=== PATIENT | female | born 1935 | race Caucasian/White ===

== ENCOUNTER 2022-11-10 08:33 | Emergency (ER) | payer MEDICARE, OTHER, SELFPAY ==
[2022-11-10 08:41] VITALS: BP 134/77; PULSE 84; RESP 16; TEMP 36.9; O2SAT 94; BMI 26.6
--- NOTE | 2022-11-10 08:52 | DI.RAD.S_ITS ---
PROCEDURE: XR CHEST 2V INDICATIONS: cough TECHNIQUE: 2 views of the chest were acquired. COMPARISON: None. FINDINGS: Surgical changes and devices: Cervical fixation hardware is grossly intact. Lungs and pleura: There is diffuse interstitial prominence. No focal airspace opacities. Mediastinum: Mediastinal contours are normal. Heart size is normal. Bones and chest wall: No suspicious bony abnormalities. Soft tissues appear unremarkable. IMPRESSION: Interstitial prominence suggesting fluid overload. Dictated by: Robyn Lafleur M.D. on 11/10/2022 at 9:53 Approved by: Robyn Lafleur M.D. on 11/10/2022 at 9:54
[2022-11-10 09:24] LABS: Strep Grp A by PCR Rapid Negative (Negative)
--- NOTE | 2022-11-10 09:28 | ED_ITS ---
HPI - URI/Sore Throat General Chief Complaint: Upper Respiratory Symptoms Stated Complaint: bad cough Time Seen by Provider: 11/10/22 08:52 Source: patient Mode of arrival: Ambulatory History of Present Illness HPI Narrative: Patient is a 86-year-old female history of coronary artery disease hypertension hyperlipidemia presenting today with hoarse voice. She reports that she is here for a class reunion she is been talking quite a bit and woke up this morning with a hoarse voice. She denies any fatigue fever or chills. Yesterday she had a mild sore throat. She denies any shortness of breath with exertion no chest pain no other symptoms. She is supposed to fly back home tomorrow and wanted an evaluation Review of Systems Review of Systems ROS Unobtainable: All systems reviewed & are unremarkable except as noted in HPI and below Patient History Social History Smoking Status: Never smoker Smoking Status: Never smoker alcohol intake frequency: holidays/special occasions only Substance Use Type: does not use Exam Initial Vital Signs Initial Vital Signs: Vital Signs Temperature 98.5 F 11/10/22 08:41 Pulse Rate 84 11/10/22 08:41 Respiratory Rate 16 11/10/22 08:41 Blood Pressure 134/77 11/10/22 08:41 Pulse Oximetry 94 11/10/22 08:41 Oxygen Delivery Method Room Air 11/10/22 08:41 GENERAL: Alert pleasant well-appearing 86-year-old female and in no acute distress. HEENT: Head atraumatic,EOMI, pupils reactive, face symmetric, moist mucous membranes PHARYNX: No erythema, no tonsillar exudate, no cervical lymphadenopathy CARDIOVASCULAR: Regular rate and rhythm without murmurs, rubs or gallops. RESPIRATORY: Breath sounds equal bilaterally, no wheezes rales or rhonchi. EXTREMITIES: Normal range of motion, no clubbing or edema. Neurovascularly intact NEUROLOGICAL: Alert and oriented x4. SKIN: Warm, dry, no laceration, no petechiae, no rashes or lesions. Course Orders Ordered: ED Orders 11/10/22 08:52 Chest [XR chest 2V] Stat 11/10/22 08:57 Covid-19 + FLU A/B + RSV - PCR Stat Strep Grp A by PCR Rapid Stat Throat Culture Stat Vital Signs Vital signs: Vital Signs - 8 hr 11/10/22 08:41 Temperature 98.5 F Pulse Rate 84 Respiratory Rate 16 Blood Pressure 134/77 Pulse Oximetry 94 Oxygen Delivery Method Room Air MDM - URI/Sore Throat Lab Data Labs: Lab Results 11/10/22 11/10/22 11/10/22 Range/Units 08:57 08:57 08:57 Chlamy pneumoniae PCR Cancelled Adenovirus (PCR) Cancelled B. pertussis DNA (PCR) Cancelled B.parapertussis DNA PCR Cancelled Coronavirus OC43 (PCR) Cancelled Coronavirus HKU1 (PCR) Cancelled Coronavirus 229E (PCR) Cancelled SARS-CoV-2 (PCR) Cancelled Negative Coronavirus NL63 (PCR) Cancelled Human Metapneumovir PCR Cancelled Influenza A (RT-PCR) Flu a negative (NEGATIVE) Influenza Type A (PCR) Cancelled Influenza B (RT-PCR) Flu b negative (NEGATIVE) Influenza Type B (PCR) Cancelled M. pneumoniae (PCR) Cancelled Parainfluenza 1 (PCR) Cancelled Parainfluenza 2 (PCR) Cancelled Parainfluenza 3 (PCR) Cancelled Parainfluenza 4 (PCR) Cancelled RSV (PCR) Cancelled Negative Entero/Rhino (PCR) Cancelled Group A Strep (PCR) Negative (Negative) Imaging Data Chest x-ray: Radiologist's Impression: PROCEDURE:? XR CHEST 2V ? INDICATIONS:? cough ? TECHNIQUE:? 2 views of the chest were acquired.? ? COMPARISON:? None. ? FINDINGS:? ? Surgical changes and devices:? Cervical fixation hardware is grossly intact. ? Lungs and pleura:? There is diffuse interstitial prominence.? No focal airspace opacities. ? Mediastinum:? Mediastinal contours are normal.? Heart size is normal.? ? Bones and chest wall:? No suspicious bony abnormalities.? Soft tissues appear unremarkable.? ? ? IMPRESSION:? Interstitial prominence suggesting fluid overload. ? ? Dictated by: Robyn Lafleur M.D. on 11/10/2022 at 9:53 ? ? Approved by: Robyn Lafleur M.D. on 11/10/2022 at 9:54 [facility] Narrative Medical decision making narrative: Patient overall appears very well she has a hoarse voice she is absolutely no respiratory distress she has no chest pain respiratory panel is negative chest x-ray does not show any evidence of pneumonia the questionable fluid overload but she really has absolutely no symptoms. Recommend that she have re- evaluation when she returns home or if symptoms worsen. At this time supportive care only. Discharge Plan Departure Patient Disposition: Home Clinical Impression: Upper respiratory infection Instructions: DI for Viral Upper Respiratory Infection -- Adult Activity Restrictions/Additional Instructions: *You have been diagnosed with probable viral syndrome *What to do: At this time viral panel up COVID influenza and RSV negative. Chest x-ray is negative. Recommend following up with your primary when you return home *Continue to take medications as directed *Follow up with your primary care provider in 2-3 days or call [phone] *Return to ER if you should have increasing shortness of breath fever dizziness lightheadedness or any new, worsening or concerning symptoms Stand Alone Forms: Patient Portal/API
[2022-11-10 09:45] LABS: Influenza A - CEPHEID Flu A NEGATIVE (NEGATIVE); Influenza B - CEPHEID Flu B NEGATIVE (NEGATIVE); Respiratory Syncytial Virus Negative (Negative)
[2022-11-10 09:46] LABS: COVID-19 CEPHEID 4-PLEX PCR Negative (Negative)
== END 2022-11-10 10:40 | disposition home or self-care (01) ==
PROVIDERS: Emergency Provider Emergency Medicine
DX: J06.9 Acute upper respiratory infection, unspecified (principal); Z20.822 Contact with and (suspected) exposure to COVID-19
CPT/HCPCS: 0241U; 71046; 87070; 87651; 99281; 99283